=== PATIENT | female | born 1960 | race Caucasian/White ===

== ENCOUNTER 2018-10-08 19:35 | Emergency (ER) | payer OTHER ==
[2018-10-08 19:41] VITALS: BMI 28.1
[2018-10-08] MEDS ORDERED: SODIUM CHLORIDE 1,000 ML IV ONE (20:14)
[2018-10-08] MEDS ORDERED: MECLIZINE HCL 25 MG TABLET (FP) PO ONE (20:16)
[2018-10-08] MEDS ORDERED: LABETALOL HCL 5 MG/1 ML (100MG/20 ML VIAL) IVPUSH ONE (20:16)
--- NOTE | 2018-10-08 20:22 | PDOC ---
NIH Stroke Scale - Last Known Well Date/Time & Onset Date Last Known Well: 10/08/18 Time Last Known Well: 17:30 - Initial Evaluation Level of consciousness: Alert Ask patient the month and their age: Answers both correctly Ask patient to open & close eyes; make fist and let go: Obeys both correctly Best gaze (horizontal eye movement): Normal Visual field testing: No visual field loss Facial paresis (Show teeth/raise eyebrows/close eyes tight): Normal symmetrical movement Motor Function: Left Arm: Normal Motor Function: Right Arm: Normal (extends arm 90 (or 45) degrees for 10 seconds without drift Motor Function: Left Leg: Normal (extends leg 30 degrees for 5 seconds without drift) Motor Function: Right Leg: Normal (extends leg 30 degrees for 5 seconds without drift) Limb Ataxia: No ataxia Sensory(Use pinprick test arms,legs,trunk,face/side to side): Normal Best language (Describe picture, name items, read sentences): No Aphasia Dysarthria (read several words): Normal articulation Extinction and Inattention: No abnormality - Total Score NIH Stroke Scale Score: 0
[2018-10-08] MEDS ORDERED: LABETALOL HCL 100 MG TABLET (FP) PO ONE (20:31)
--- NOTE | 2018-10-08 20:31 | PDOC ---
History of Present Illness <Lona Phelps - Last Filed: 10/08/18 23:43> - General History Source: Patient Exam Limitations: No Limitations - History of Present Illness Initial Comments: 10/08/18 20:23 HISTORY OF PRESENT ILLNESS: This is a 57-year-old woman who denies medical history presents emergency department for evaluation of intermittent lightheadedness and elevated blood pressure starting today at approximately 5: 30 PM. Patient was visiting her brother prison facility when she noticed she was expressing dizziness when she turns her head to the right. She didn't tender head back to the left and the dizziness came back. Both episodes lasted a matter of seconds before resolving spontaneously. Patient then tried to stand up when she began to feel dizzy again with spontaneous resolved after a few seconds. As she was in a prison facility she had her blood pressure checked and they told her was elevated with a systolic blood pressure of 180. Patient denied any slurred speech, blurry vision, headaches, chest pain , shortness of breath, and vomiting. Patient did states she experienced some brief nausea which is currently resolved. Of note her brothers in the prison facility for a CVA and he is 1-year-old within the patient. No recent travel or sick contacts. PAST MEDICAL HISTORY: Denies past medical history SURGICAL HISTORY: Denies ALLERGIES: Shellfish REVIEW OF SYSTEMS General/Constitutional: Denies fever or chills. Denies weakness, weight change. HEENT: Denies change in vision. Denies ear pain or discharge. Denies sore throat. Cardiovascular: Denies chest pain or shortness of breath. Respiratory: Denies cough, wheezing, or hemoptysis. Gastrointestinal: Denies nausea, vomiting, diarrhea or constipation. Denies rectal bleeding. Genitourinary: Denies dysuria, frequency, or change in urination. Musculoskeletal: Denies joint or muscle swelling or pain. Denies neck or back pain. Skin and breasts: Denies rash or easy bruising. Neurologic: Denies headache, loss of consciousness, or loss of sensation. (+) vertigo Psychiatric: Denies depression or anxiety. Endocrine: Denies increased thirst. Denies abnormal weight change. Hematologic/Lymphatic: Denies anemia, easy bleeding, or history of blood clots. Allergic/Immunologic: Denies hives or skin allergy. Denies latex allergy. PHYSICAL EXAM General Appearance: Well-appearing, appropriately dressed. No apparent distress , no intoxication. HEENT: EOMI, PERRLA, normal ENT inspection, normal voice, TMs normal, pharynx normal. No conjunctival pallor. No photophobia, scleral icterus. Neck: Supple. Trachea midline. No tenderness, rigidity, carotid bruit, stridor , lymphadenopathy, or thyromegaly. Respiratory/Chest: Lungs CTAB. No shortness of breath, chest tenderness, respiratory distress, accessory muscle use. No crackles, rales, rhonchi, stridor , wheezing, dullness Cardiovascular: RRR. S1, S2. No JVD, murmur, bradycardia, tachycardia. Vascular Pulses: Dorsalis-Pedis (R): 2+, Dorsalis-Pedis (L): 2+ Gastrointestinal/Abdominal: Normal bowel sounds. Abdomen soft, non-distended. No tenderness or rebound tenderness. No organomegaly, pulsatile mass, guarding, hernia, hepatomegaly, splenomegaly. Lymphatic: No adenopathy, tenderness. Musculoskeletal/Extremities: Normal inspection. FROM of all extremities, normal capillary refill. Pelvis Stable. No CVA tenderness. No tenderness to extremities, pedal edema, swelling, erythema or deformity. Integumentary: Appropriate color, dry, warm. No cyanosis, erythema, jaundice or rash Neurologic: medical economics consultant II-XII intact. Fully oriented, alert. Appropriate mood/affect. Motor strength 5/5. No appreciable EOM palsy, facial droop or sensory deficit. Tandem gait WNL. [id number] testing is normal. No nystagmus appreciated. (-) Katy-Hallpike. NIHSS-0. <Ghanshyam Calderon - Last Filed: 10/09/18 00:05> - General Chief Complaint: Lightheaded Stated Complaint: Lightheaded Time Seen by Provider: 10/08/18 19:56 Past History <Lona Phelps - Last Filed: 10/08/18 23:43> - Past Medical History COPD: No - Suicide/Smoking/Psychosocial Hx Smoking History: Never smoked <Ghanshyam Calderon - Last Filed: 10/09/18 00:05> - Past Medical History Allergies/Adverse Reactions: Allergies Allergy/AdvReac Type Severity Reaction Status Date / Time shellfish derived Allergy Verified 10/08/18 19:41 Home Medications: Ambulatory Orders Meclizine HCl 50 mg PO BID PRN #60 tablet 10/08/18 *Physical Exam - Vital Signs Last Vital Signs Temp Pulse Resp BP Pulse Ox 98.1 F 71 18 151/72 100 10/08/18 19:39 10/08/18 19:39 10/08/18 19:39 10/08/18 21:28 10/08/18 19:39 <Lona Phelps - Last Filed: 10/08/18 23:43> - Vital Signs Last Vital Signs Temp Pulse Resp BP Pulse Ox 98.1 F 71 18 182/74 H 100 10/08/18 19:39 10/08/18 19:39 10/08/18 19:39 10/08/18 19:39 10/08/18 19:39 <Ghanshyam Calderon - Last Filed: 10/09/18 00:05> Moderate Sedation - Procedure Monitoring Vital Signs: Procedure Monitoring Vital Signs Temperature 98.1 F 10/08/18 19:39 Pulse Rate 71 10/08/18 19:39 Respiratory Rate 18 10/08/18 19:39 Blood Pressure 151/72 10/08/18 21:28 O2 Sat by Pulse Oximetry (%) 100 10/08/18 19:39 <Lona Phelps - Last Filed: 10/08/18 23:43> - Procedure Monitoring Vital Signs: Procedure Monitoring Vital Signs Temperature 98.1 F 10/08/18 19:39 Pulse Rate 71 10/08/18 19:39 Respiratory Rate 18 10/08/18 19:39 Blood Pressure 182/74 H 10/08/18 19:39 O2 Sat by Pulse Oximetry (%) 100 10/08/18 19:39 <Ghanshyam Calderon - Last Filed: 10/09/18 00:05> ED Treatment Course - LABORATORY CBC & Chemistry Diagram: 10/08/18 21:21 10/08/18 21:21 - ADDITIONAL ORDERS Additional order review: Laboratory Results 10/08/18 10/08/18 10/08/18 21:21 21:21 21:21 PT with INR 12.60 INR 1.07 Sodium 141 Potassium 4.4 Chloride 106 Carbon Dioxide 29 Anion Gap 5 L BUN 13 Creatinine 0.6 Creat Clearance w eGFR > 60 Random Glucose 89 Calcium 9.2 Total Bilirubin 0.2 AST 22 ALT 27 Alkaline Phosphatase 98 Creatine Kinase 102 Troponin I < 0.02 Total Protein 6.9 Albumin 3.7 Blood Type A NEGATIVE Antibody Screen Negative 10/08/18 21:21 RBC 4.56 MCV 81.9 MCHC 33.7 RDW 14.6 MPV 8.3 Neutrophils % 51.2 Lymphocytes % 39.2 Monocytes % 7.3 Eosinophils % 1.5 Basophils % 0.8 - Medications Given in the ED: ED Medications Discontinued Medications Generic Name Dose Route Start Last Admin Trade Name Freq PRN Reason Stop Dose Admin Sodium Chloride 1,000 mls @ 1,000 mls/hr 10/08/18 20:14 10/08/18 21:27 Normal Saline - IV 10/08/18 21:13 1,000 mls/hr .Q1H ONE Administration Labetalol HCl 10 mg 10/08/18 20:16 10/08/18 21:36 Normodyne Injection - IVPUSH 10/08/18 20:17 Not Given ONCE ONE Labetalol HCl 100 mg 10/08/18 20:31 10/08/18 21:34 Normodyne - PO 10/08/18 20:32 Not Given ONCE ONE Meclizine HCl 25 mg 10/08/18 20:16 10/08/18 21:27 Antivert - PO 10/08/18 20:17 25 mg ONCE ONE Administration <Lona Phelps - Last Filed: 10/08/18 23:43> - LABORATORY CBC & Chemistry Diagram: 10/08/18 21:21 10/08/18 21:21 - RADIOLOGY Radiology Studies Ordered: Category Date Time Status HEAD CT WITHOUT CONTRAST [CT] Stat CT Scan 10/08/18 20:15 Ordered CHEST PA & LAT [RAD] Stat Radiology 10/08/18 20:16 Ordered <Ghanshyam Calderon - Last Filed: 10/09/18 00:05> Medical Decision Making - Medical Decision Making 10/08/18 23:43 Patient Name: RUTHIE STRAUSS THIS IS A PRELIMINARY REPORT FROM [facility] DATE OF SERVICE: 2018-10-08 22:32:22 IMAGES: 140 EXAM: HEAD CT WITHOUT CONTRAST HISTORY: Mental status changes and headache COMPARISON: None. FINDINGS: The ventricular system is midline and nondilated. The sulcal pattern is normal for the patient's age. There is no bleed, mass, extra-axial fluid collection or mass effect. No skull fracture or skull lesion is identified. The visualized paranasal sinuses and mastoid air cells are clear. The subcutaneous calcified sebaceous cyst is noted. IMPRESSION: No acute pathology. <Lona Phelps - Last Filed: 10/08/18 23:43> - Medical Decision Making 10/08/18 20:32 A/P: 57-year-old woman with brief episodes of dizziness starting at 5:30 this afternoon Physical exam is within normal limits No nystagmus is noted Negative Katy-Hallpike And IHSS-0 Differential diagnosis includes but is not limited to: Vertigo, presyncope, ACS , hypertensive urgency, CVA, dehydration, infection, electrolyte abnormalities CVA is less likely given stroke scale of 0. I will obtain a CT of the head as patient has first-degree relative with CVA at approximately the same age. Labs including cardiac profile Urinalysis CT of the head Chest x-ray EKG Labetalol 100 mg orally IV fluids 10/08/18 23:56 Laboratory testing is unremarkable. Chest x-rays read by me: Angles clear. Cardiac silhouette is within normal limits. Normal mediastinum. No focal infiltrates or consolidations noted. Patient is free of symptoms after receiving meclizine and IV fluids. I'll discharge the patient home. I discussed the physical exam findings, ancillary test results and final diagnoses with the patient. I answered all of the patient's questions. The patient was satisfied with the care received and felt comfortable with the discharge plan and treatment plan. The patient will call their primary care physician within 24 hours to arrange follow-up and will return to the Emergency Department with any new, persistent or worsening symptoms. <Ghanshyam Calderon - Last Filed: 10/09/18 00:05> *DC/Admit/Observation/Transfer <Lona Phelps - Last Filed: 10/08/18 23:43> - Discharge Dispostion Decision to Admit order: No <Ghanshyam Calderon - Last Filed: 10/09/18 00:05> Diagnosis at time of Disposition: Vertigo - Discharge Dispostion Disposition: HOME Condition at time of disposition: Fair - Prescriptions Prescriptions: Meclizine HCl 50 mg PO BID PRN #60 tablet PRN Reason: Vertigo - Referrals Referrals: Betsy Avery MD [Staff Physician] - - Patient Instructions Printed Discharge Instructions: DI for Vertigo Additional Instructions: Take meclizine 50 mg twice a day as needed for dizziness. Keep well-hydrated. Your CAT scan today was normal. Your laboratory testing was normal. Follow-up with the doctor provided for continued evaluation and for primary care. Return to the emergency department for any worsening dizziness, slurred speech, blurry vision, inability to walk or any other concerns. Thank you very much for choosing us to provide your emergent health care needs.
[2018-10-08] MEDS ORDERED: LABETALOL HCL 100 MG TABLET (FP) ONE (21:04)
[2018-10-08] MEDS ORDERED: MECLIZINE HCL 25 MG TABLET (FP) ONE (21:05)
[2018-10-08 21:26] LABS: BASO % 0.8 % (0-2.0); EOS % 1.5 % (0-4.5); HEMATOCRIT 37.4 % (32.4-45.2); HEMOGLOBIN 12.6 GM/dL (10.7-15.3); LYMPH % 39.2 % (8-40); MCH 27.6 pg (25.7-33.7); MCHC 33.7 g/dl (32.0-36.0); MEAN CELL VOLUME 81.9 fl (80-96); MEAN PLT VOLUME 8.3 fl (7.5-11.1); MONO % 7.3 % (3.8-10.2); NEUT % 51.2 % (42.8-82.8); PLATELET COUNT 240 K/MM3 (134-434); RBC 4.56 M/mm3 (3.60-5.2); RDW 14.6 % (11.6-15.6); WHITE BLOOD COUNT 6.1 K/mm3 (4.0-10.0)
[2018-10-08 21:52] LABS: INR 1.07 (0.83-1.09); PROTHROMBIN TIME (PATIENT) 12.6 SEC (9.7-13.0)
[2018-10-08 22:10] LABS: ALBUMIN 3.7 g/dl (3.4-5.0); ALK PHOS 98 U/L (45-117); ANION GAP 5 MMOL/L (8-16); BILIRUBIN,TOTAL 0.2 mg/dL (0.2-1); BLOOD UREA NITROGEN 13 mg/dL (7-18); CALCIUM 9.2 mg/dL (8.5-10.1); CHLORIDE 106 mmol/L (98-107); CO2 29 mmol/L (21-32); CREATININE 0.6 mg/dL (0.55-1.3); GLUCOSE,RANDOM 89 mg/dL (74-106); POTASSIUM 4.4 mmol/L (3.5-5.1); SGOT/AST 22 U/L (15-37); SGPT/ALT 27 U/L (13-61); SODIUM 141 mmol/L (136-145); TOT PROT 6.9 g/dl (6.4-8.2)
[2018-10-08 23:47] LABS: URINE APPEARANCE CLOUDY; URINE BILIRUBIN NEGATIVE (<2.0 mg/dL); URINE COLOR YELLOW; URINE GLUCOSE (UA) NEGATIVE (NEGATIVE); URINE KETONE NEGATIVE (NEGATIVE); URINE LEUK ESTERASE NEGATIVE (NEGATIVE); URINE NITRITE NEGATIVE (NEGATIVE); URINE PROTEIN NEGATIVE (NEGATIVE); URINE UROBILINOGEN NEGATIVE mg/dL (0.2-1.0)
[2018-10-09 01:17] VITALS: BP 129/72; PULSE 88; TEMP 97.8
== END 2018-10-09 01:16 | disposition home or self-care (01) ==
LOC: JER 19:35
PROC: 3E0337Z Introduction of Electrolytic and Water Balance Substance into Peripheral Vein, Percutaneous Approach (ICD-10-PCS; principal; 2018-10-08)
DX: R42 Dizziness and giddiness (principal); Z91.013 Allergy to seafood
CPT/HCPCS: 36415; 70450-TC; 71046-TC-FY; 80053; 81003; 82550; 84484; 85025; 85610; 86850; 86900; 86901; 87086; 99282-25; J7030